=== PATIENT | male | born 1990 | race African-American/Black ===

== ENCOUNTER 2020-04-20 09:16 | Inpatient (IN) | payer OTHER ==
[~2020-04-20] VITALS: Ht 177.8 cm; Wt 90.5 kg
[2020-04-20 10:06] LABS: BASO # 0.1 10^3/uL (0.0-0.2); BASO % 0.2 % (0.0-1.0); HEMATOCRIT 49.4 % (42.0-52.0); LYMPH # 1.1 10^3/uL (1.5-5.0); MEAN CORPUSCULAR HEMOGLOBIN 29.9 pg (27.0-33.0); MEAN CORPUSCULAR HGB CONC 32.4 g/dl (32.0-36.5); MEAN CORPUSCULAR VOLUME 92.2 fl (80.0-96.0); MONO # 1.7 10^3/uL (0.0-0.8); MONO % 7.6 % (0.0-5.0); NEUTROPHILS # 19.6 10^3/uL (1.5-8.5); NEUTROPHILS % 86.4 % (36.0-66.0); PLATELET COUNT, AUTOMATED 265 10^3/uL (150-450); RED BLOOD COUNT 5.36 10^6/uL (4.30-6.10); WHITE BLOOD COUNT 22.7 10^3/uL (4.0-10.0)
[2020-04-20] MEDS ORDERED: NS 1,000 ML IV ONE (10:15)
[2020-04-20 10:16] LABS: INR 1.16; PROTHROMBIN TIME 14.5 SECONDS (11.8-14.0)
[2020-04-20 10:17] LABS: PARTIAL THROMBOPLASTIN TIME 25.2 SECONDS (25.0-38.4)
--- NOTE | 2020-04-20 10:36 | REP ---
Clinical: Syncope . Comparison: None . Technique: PA and lateral. Findings: The mediastinum and cardiac silhouette are normal. The lung brown are clear and without acute consolidation, effusion, or pneumothorax. The skeletal structures are intact and normal. Impression: 1. No acute cardiopulmonary process. Electronically Signed by Raúl Salgado MD 04/20/2020 10:27 A
[2020-04-20 10:46] LABS: CALCIUM LEVEL 10.4 MG/DL (8.5-10.1); CREATININE FOR GFR 2.95 MG/DL (0.70-1.30); FREE T4 1.33 NG/DL (0.76-1.46); GLOMERULAR FILTRATION RATE 33.2 (>60); MAGNESIUM LEVEL 2.7 MG/DL (1.8-2.4); POTASSIUM SERUM 4.7 MEQ/L (3.5-5.1); THYROID STIMULATING HORMONE 1.93 uIU/ML (0.358-3.740)
[2020-04-20] MEDS ORDERED: SODIUM CHLORIDE 0.9% 1000ML IV ONE (13:15)
[2020-04-20 14:50] VITALS: BP 105/68
[2020-04-20] MEDS: NS 1,000 ML IV SCH ×2 (15:12→20:44)
--- NOTE | 2020-04-20 16:14 | HPEPDOC ---
[facility] [place] Medical History & Physical Date of Admission Apr 20, 2020 Date of Service: Apr 20, 2020 Other Provider [facility] Attending Physician: NALINI KIDD DO History and Physical CHIEF COMPLAINT: Severe fatigue and collapse HISTORY OF PRESENT ILLNESS: Patient is a 29-year-old -[place] male who is in the . He was completing a 12 mile [place] december earlier today, he reports that the first 11 miles when well, and then during the last mile he became severely fatigued, and began experiencing significant muscle aches in the lower extremities, cramps, but nonetheless persevered until he finished. Immediately completing the 12 miles he collapsed, was brought to [facility], and immediately sent to our emergency department. EMS recorded a very low blood pressure, and upon arrival to our facility he was 95/57 with an elevated BUN/creatinine, creatinine, and total creatinine kinase, all consistent with dehydration in the setting of significant physical exertion, on a hot day in April. Patient clinically has rhabdomyolysis CODE STATUS: Full code PAST MEDICAL HISTORY: None PAST SURGICAL HISTORY: None SOCIAL HISTORY: He does not smoke. He only drinks an occasional beer on the weekends. Does not use recreational drugs. FAMILY HISTORY: He has no family history of heart disease, diabetes, cancers. REVIEW OF SYSTEMS: Constitutional: Patient denies any recent fevers, chills, night sweats, or recent weight gain/loss. HEENT: Patient denies blurred or double vision, transient visual disturbances, postnasal drip, epistaxis, sore throat, difficulty chewing or swallowing food. Cardiovascular: Patient denies chest discomfort/pain, palpitations, exertional dyspnea, orthopnea, edema of the extremities, claudication. Respiratory: Patient denies wheezing, cough, hemoptysis, sputum production. Gastrointestinal: Patient denies nausea, vomiting, diarrhea, constipation, abdominal pain, melena, hematochezia, hematemesis. PHYSICAL EXAMINATION: General: Awake, alert, oriented 3. He does not appear to be in any acute distress at this time. HEENT: Head normocephalic atraumatic, conjunctiva are pink, sclera are nonicteric, buccal mucosa and tongue is fairly dry. Hearing is grossly intact to conversation. Respiratory: Clear to auscultation bilaterally with no wheezes, rales, or rhonchi. Cardiovascular: Regular rate and rhythm, with no rubs, gallops, or murmur. Abdomen: Soft, nontender, nondistended, no hepatosplenomegaly appreciated. Bowel sounds present. Extremities: 2+ pulses in the radial bilaterally. No evidence of clubbing or cyanosis. ELECTROCARDIOGRAM: Sinus rhythm ASSESSMENT: Acute kidney injury secondary to dehydration and rhabdomyolysis, tertiary to significant physical exertion on a hot day PLAN: Admit the patient to [facility]. Aggressive fluid rehydration. Urine myoglobin screen already entered, however the patient has not been able to urinate yet. Will recheck basic metabolic profile and creatinine kinase in the morning. Vital Signs Vital Signs Date Time Temp Pulse Resp B/P (MAP) Pulse Ox O2 Delivery O2 Flow Rate FiO2 04/20/20 14:50 97.9 79 20 105/68 (80) 100 Room Air Laboratory Data Labs 24H Laboratory Tests 2 04/20/20 09:33: Bedside Glucose (Misc Panel) 80 04/20/20 09:49: Immature Granulocyte % (Auto) 0.8, Neutrophils (%) (Auto) 86.4H, Lymphocytes (%) (Auto) 5.0L, Monocytes (%) (Auto) 7.6H, Eosinophils (%) (Auto) 0.0, Basophils (%) (Auto) 0.2, Neutrophils # (Auto) 19.6H, Lymphocytes # (Auto) 1.1L, Monocytes # (Auto) 1.7H, Eosinophils # (Auto) 0.0, Basophils # (Auto) 0.1, Nucleated Red Blood Cells % (auto) 0.0, Prothrombin Time 14.5H, Prothromb Time International Ratio 1.16, Activated Partial Thromboplast Time 25.2, Anion Gap 11, Glomerular Filtration Rate 33.2L, Calcium Level 10.4H, Magnesium Level 2.7H, Total Creatine Kinase 2487H, Thyroid Stimulating Hormone (TSH) 1.930, Free Thyroxine 1.33 CBC/BMP Laboratory Tests 04/20/20 09:49 Home Medications No Active Prescriptions or Reported Meds Allergies Coded Allergies: No Known Allergies (Unverified , 04/20/20) A-FIB/CHADSVASC A-FIB History Current/History of A-Fib/PAF?: No Current PO Anticoag Therapy: No NALINI KIDD DO Apr 20, 2020 16:14
[2020-04-20 22:00] VITALS: BP 103/66
[2020-04-21] MEDS: NS 1,000 ML IV SCH ×7 (00:33→23:05)
--- NOTE | 2020-04-21 00:36 | ECGEPIP ---
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 Order Number: [id number] Reading MD: Celso Pappas Measurements Intervals [place] Rate: 84 P: 40 IA: 162 QRS: 23 QRSD: 84 T: 38 QT: 349 QTc: 413 Interpretive Statements SINUS RHYTHM Nonspecific T wave abnormality Comparison tracing not on file Electronically Signed on 04-21-2020 0:35:51 EDT by Celso Pappas
[2020-04-21 06:00] VITALS: BP 104/56
[2020-04-21] MEDS: ENOXAPARIN 40MG/0.4ML SYRINGE (J1650 PER 10MG) SC SCH (08:46)
[2020-04-21 08:57] LABS: HEMATOCRIT 39.9 % (42.0-52.0); HEMOGLOBIN 12.9 g/dl (13.5-17.5); MEAN CORPUSCULAR HEMOGLOBIN 29.9 pg (27.0-33.0); MEAN CORPUSCULAR HGB CONC 32.3 g/dl (32.0-36.5); MEAN CORPUSCULAR VOLUME 92.6 fl (80.0-96.0); PLATELET COUNT, AUTOMATED 210 10^3/uL (150-450); RED BLOOD COUNT 4.31 10^6/uL (4.30-6.10); WHITE BLOOD COUNT 10.3 10^3/uL (4.0-10.0)
[2020-04-21 10:48] LABS: BLOOD UREA NITROGEN 12 MG/DL (7-18); CARBON DIOXIDE LEVEL 23 MEQ/L (21-32); CHLORIDE LEVEL 114 MEQ/L (98-107); CREATININE FOR GFR 1.07 MG/DL (0.70-1.30); GLOMERULAR FILTRATION RATE > 60.0 (>60); GLUCOSE, FASTING 68 MG/DL (70-100); POTASSIUM SERUM 4.2 MEQ/L (3.5-5.1); SODIUM LEVEL 144 MEQ/L (136-145)
[2020-04-21 12:18] LABS: CPK CREATINE PHOSPHOKINASE 29759 U/L (39-308)
[2020-04-21 14:00] VITALS: BP 118/66
--- NOTE | 2020-04-21 17:06 | IPNPDOC ---
Subjective Date Seen The patient was seen on 04/21/20. Subjective Chief Complaint/HPI Patient is sitting upright in bed moaning room. He reports that he is feeling quite well. He did not have any events overnight. He reports that his muscle aches have also significantly improved since yesterday, but he does still have some residual aches in his legs. Otherwise, the remainder of his review of systems is negative. Objective Physical Examination General Exam: Positive: Alert, No Acute Distress Chest Exam: Positive: Clear to auscultation, Normal air movement Heart Exam: Positive: Rate Normal, Regular Rhythm, Normal S1, Normal S2; Negative: Murmurs, Rubs Abdomen Exam: Positive: Normal bowel sounds, Soft; Negative: Tenderness, Hepatospenomegaly Skin Exam: Positive: Nl turgor and temperature; Negative: Rash, Breakdown Psych Exam: Positive: Mental status NL, Mood NL, Oriented x 3 Assessment /Plan Problems (1) Rhabdomyolysis Status: Acute (2) Elevated creatine phosphokinase level Status: Acute (3) Acute kidney injury Status: Resolved (4) Myalgia Status: Acute Response to Treatment: Improving Plan/VTE VTE Prophylaxis Ordered?: Yes Plan Clinically patient is improved. Acute kidney injury is now resolved. However, his CPK remains critically elevated, therefore we will continue aggressive hydration until these levels are much more improved. VS, I&O, 24H, Fishbone Vital Signs/I&O Vital Signs Date Time Temp Pulse Resp B/P (MAP) Pulse Ox O2 Delivery O2 Flow Rate FiO2 04/21/20 14:00 98.0 55 19 118/66 (83) 100 Room Air I&O- Last 24 Hours up to 6 AM 04/21/20 05:59 Intake Total 1550 ml Output Total 550 ml Balance 1000 ml Laboratory Data 24H LABS Laboratory Tests 2 04/21/20 08:13: Nucleated Red Blood Cells % (auto) 0.0, Anion Gap 7L, Glomerular Filtration Rate > 60.0, Calcium Level 8.0#L, Total Creatine Kinase 57161#H CBC/BMP Laboratory Tests 04/21/20 08:13 NALINI KIDD DO Apr 21, 2020 17:06
[2020-04-21 22:00] VITALS: BP 118/61
[2020-04-22] MEDS: NS 1,000 ML IV SCH ×3 (03:06→10:58)
[2020-04-22 06:00] VITALS: BP 113/70
[2020-04-22 07:03] LABS: HEMATOCRIT 40.4 % (42.0-52.0); HEMOGLOBIN 13.2 g/dl (13.5-17.5); MEAN CORPUSCULAR HEMOGLOBIN 29.9 pg (27.0-33.0); MEAN CORPUSCULAR HGB CONC 32.7 g/dl (32.0-36.5); MEAN CORPUSCULAR VOLUME 91.4 fl (80.0-96.0); PLATELET COUNT, AUTOMATED 215 10^3/uL (150-450); RED BLOOD COUNT 4.42 10^6/uL (4.30-6.10); WHITE BLOOD COUNT 5.9 10^3/uL (4.0-10.0)
[2020-04-22] MEDS: ENOXAPARIN 40MG/0.4ML SYRINGE (J1650 PER 10MG) SC SCH (07:15)
[2020-04-22 08:35] LABS: BLOOD UREA NITROGEN 4 MG/DL (7-18); CALCIUM LEVEL 8.2 MG/DL (8.5-10.1); CARBON DIOXIDE LEVEL 26 MEQ/L (21-32); CHLORIDE LEVEL 110 MEQ/L (98-107); CPK CREATINE PHOSPHOKINASE 15131 U/L (39-308); CREATININE FOR GFR 0.94 MG/DL (0.70-1.30); GLOMERULAR FILTRATION RATE > 60.0 (>60); GLUCOSE, FASTING 96 MG/DL (70-100); POTASSIUM SERUM 3.8 MEQ/L (3.5-5.1); SODIUM LEVEL 139 MEQ/L (136-145)
[2020-04-22 14:00] VITALS: BP 113/70
[2020-04-22] MEDS: LR 1,000 ML IV SCH ×2 (14:36→21:28)
--- NOTE | 2020-04-22 18:43 | IPNPDOC ---
Subjective Date Seen The patient was seen on 04/22/20. Subjective Chief Complaint/HPI The patient reports that his muscle aches have completely resolved at this time. He continues to be urinating quite a bit. His urine is now essentially clear in color. The entire rest of his review of systems is negative. Objective Physical Examination General Exam: Positive: Alert, Cooperative, No Acute Distress Chest Exam: Positive: Clear to auscultation, Normal air movement Heart Exam: Positive: Rate Normal, Regular Rhythm; Negative: Murmurs, Rubs Abdomen Exam: Positive: Normal bowel sounds, Soft; Negative: Tenderness, Hepatospenomegaly Skin Exam: Positive: Nl turgor and temperature; Negative: Rash, Breakdown Psych Exam: Positive: Mental status NL, Mood NL, Oriented x 3 Assessment /Plan Problems (1) Rhabdomyolysis Status: Acute Response to Treatment: Improving (2) Elevated creatine phosphokinase level Status: Acute (3) Acute kidney injury Status: Resolved (4) Myalgia Status: Resolved Plan/VTE VTE Prophylaxis Ordered?: Yes Plan AK I has resolved. He continues to have excellent urine output. His CPK is still significantly elevated. It would not be safe to discharge him home at this time. I will switch him over to lactated Ringer's at 100 per hour, and we will recheck his CPK in the morning VS, I&O, 24H, [place] Vital Signs/I&O Vital Signs Date Time Temp Pulse Resp B/P (MAP) Pulse Ox O2 Delivery O2 Flow Rate FiO2 04/22/20 14:00 99.0 59 17 113/70 (84) 99 Room Air I&O- Last 24 Hours up to 6 AM 04/22/20 06:00 Intake Total 3560 ml Output Total 0 ml Balance 3560 ml Laboratory Data 24H LABS Laboratory Tests 2 04/22/20 06:50: Nucleated Red Blood Cells % (auto) 0.0, Anion Gap 3L, Glomerular Filtration Rate > 60.0, Calcium Level 8.2L, Total Creatine Kinase 01093M 04/22/20 11:44: Total Creatine Kinase 01428Q CBC/BMP Laboratory Tests 04/22/20 06:50 NALINI KIDD DO Apr 22, 2020 18:43
[2020-04-22 22:00] VITALS: BP 111/69
[2020-04-23] MEDS: LR 1,000 ML IV SCH ×2 (04:00→10:30)
[2020-04-23 06:00] VITALS: BP 111/75
[2020-04-23 07:46] LABS: HEMATOCRIT 43.2 % (42.0-52.0); HEMOGLOBIN 13.9 g/dl (13.5-17.5); MEAN CORPUSCULAR HEMOGLOBIN 28.9 pg (27.0-33.0); MEAN CORPUSCULAR HGB CONC 32.2 g/dl (32.0-36.5); MEAN CORPUSCULAR VOLUME 89.8 fl (80.0-96.0); PLATELET COUNT, AUTOMATED 235 10^3/uL (150-450); RED BLOOD COUNT 4.81 10^6/uL (4.30-6.10); WHITE BLOOD COUNT 5.6 10^3/uL (4.0-10.0)
[2020-04-23] MEDS: ENOXAPARIN 40MG/0.4ML SYRINGE (J1650 PER 10MG) SC SCH (08:11)
[2020-04-23 08:42] LABS: BLOOD UREA NITROGEN 11 MG/DL (7-18); CALCIUM LEVEL 8.9 MG/DL (8.5-10.1); CARBON DIOXIDE LEVEL 30 MEQ/L (21-32); CHLORIDE LEVEL 107 MEQ/L (98-107); CPK CREATINE PHOSPHOKINASE 11877 U/L (39-308); CREATININE FOR GFR 0.97 MG/DL (0.70-1.30); GLOMERULAR FILTRATION RATE > 60.0 (>60); GLUCOSE, FASTING 89 MG/DL (70-100); POTASSIUM SERUM 4.5 MEQ/L (3.5-5.1); SODIUM LEVEL 142 MEQ/L (136-145)
--- NOTE | 2020-04-23 13:36 | DS.PDOC ---
Discharge Summary General Date of Admission Apr 20, 2020 at 12:59 Date of Discharge 04/23/2020 Discharge Summary PRIMARY CARE PHYSICIAN: Arleen Victoria ATTENDING AT TIME OF DISCHARGE: Dr. Nalini Kidd, DO DISCHARGE DIAGNOS(E)S: Rhabdomyolysis Acute kidney injury Dehydration Elevated creatinine phosphokinase Myalgia HPI & HOSPITAL COURSE: Mr. Lynn was completing his graduation december that was 12 miles long. He reports that he did well for the first 11 miles, and then during the final while he became significantly fatigued, muscle cramps, exhaustion, and he successfully completed the raise, but collapsed essentially right on the finish line. He later mentioned that he did not drink anything during the race because he had started feeling a stomach cramp, and did not wish the water to exacerbate stomach cramps. He was taken to [place] where he was brought [facility] to [facility] for [facility] evaluation. He was found to be severely dehydrated, in acute kidney injury, and had an elevated creatinine phosphokinase, all of which indicative of rhabdomyolysis. He was treated with aggressive fluid rehydration, CPK was trended, myalgias have resolved, and CPK is trending down. Patient is stable and ready for discharge. PHYSICAL EXAMINATION ON DISCHARGE: GENERAL: Awake, alert, oriented 3. He is in no acute distress. CARDIOVASCULAR EXAMINATION: Regular rate and rhythm, with no rubs, gallops, or murmur. RESPIRATORY EXAMINATION: Clear to auscultation bilaterally with no wheezes, rales, or rhonchi. ABDOMINAL EXAMINATION: Soft, nontender, nondistended. Bowel sounds present. EXTREMITIES: No clubbing or edema noted. 2+ pulses in the radial bilaterally. DISPOSITION: All DISCHARGE INSTRUCTIONS: Follow-up with primary care and [facility] within the next 7-14 days. Diet as tolerated, recommended increased liquid intake over the next few days (3 L/day). Activity as tolerated. If symptoms return, or if you experience worsening of your symptoms, please call your doctor or return to the emergency department. DISCHARGE MEDICATIONS: None Vital Signs/I&Os Vital Signs Date Time Temp Pulse Resp B/P (MAP) Pulse Ox O2 Delivery O2 Flow Rate FiO2 04/23/20 06:00 97.5 59 16 111/75 (87) 100 Room Air I&O- Last 24 Hours up to 6 AM 04/23/20 06:00 Intake Total 4595 ml Output Total 550 ml Balance 4045 ml Laboratory Data Labs 24H Laboratory Tests 2 04/23/20 07:03: Nucleated Red Blood Cells % (auto) 0.0, Anion Gap 5L, Glomerular Filtration Rate > 60.0, Calcium Level 8.9, Total Creatine Kinase 99632T CBC/BMP Laboratory Tests 04/23/20 07:03 Discharge Medications No Active Prescriptions or Reported Meds Allergies Coded Allergies: No Known Allergies (Unverified , 04/20/20) NALINI KIDD DO Apr 23, 2020 13:36
== END 2020-04-23 12:25 | disposition home or self-care (01) | DRG 558 ==
LOC: EDSEX 09:16 → EDBD 09:16 → M ED 09:16 → M ED INP 12:59 → ENRESERV 13:17 → M MS5PR 14:35
PROVIDERS: ADMIT Neuromusculoskeletal Medicine & OMM; ATTEND Neuromusculoskeletal Medicine & OMM
DX: M62.82 Rhabdomyolysis (principal); N17.9 Acute kidney failure, unspecified; E86.0 Dehydration